=== PATIENT | male | born 1995 | race Caucasian/White ===

== ENCOUNTER 2024-05-25 13:16 | Outpatient (AMB) | payer OTHER, SELFPAY ==
--- NOTE | 2024-05-25 13:25 | MHC.PC.OV ---
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 Transferring care from Dr Banks ([facility]). Medical records have been requested and have not received. Barge Worker Required: No Airport Attendant: Not Required per policy Accompanied by: Self / Same As Patient Allergies No Known Allergies [No Known Allergies*] Allergy (Verified 05/25/24 13:45) Medication List - Last Reconciled 05/25/24 by Elizabeth Ulloa PA-C lamotrigine 150 mg PO BID trazodone 100 mg PO BEDTIME PRN Tobacco use date assessed: 05/25/24 Dental Screening Dental Screen Date: 05/25/24 Did you have a dental visit in the last 12 months?: No Did you have a dental problem in the last 6 months where you did not have access to dental care?: No Was dental information given to patient?: No HPI establish care HPI Details 28-year-old male coming to the office for the 1st time. Presenting with an initial visit for general evaluation and health maintenance. He has a history of a seizure disorder and has been on lamotrigine with satisfactory seizure control, as he has not had a seizure in five years. Insomnia is an ongoing issue, for which he takes trazodone, noting occasional missed doses. The patient reports numerous head surgeries following a significant fall from a parking garage in 2011. The patient has a smoking history of one to two cigarettes a day and is interested in cessation but has not previously tried any methods. [facility] Medical History (Updated 05/25/24 @ 13:54 by Elizabeth Ulloa PA-C) History of prescribed enteral nutrition feeding Surgical History (Updated 05/25/24 @ 13:54 by Elizabeth Ulloa PA-C) History of surgery of head History of surgery on arm History of right knee surgery Family History Other Substance use disorder Social History Housing: House (Town house) Alcohol intake: current Alcohol intake frequency: holidays/special occasions only Patient Tobacco Use Status: Current everyday Tobacco user Tobacco use type: Cigarette Cigarette Packs Per Day: 0.25 Cigarettes Per Day: 2 e-Cigarette/Vaping Use: Never Used Second Hand Smoke Exposure: Yes service: No Current occupational status: unemployed and disabled Cognitive needs: No Hearing needs: Yes (Hearing aide) Vision needs: No Questionnaire PHQ-9 Over the last 2 weeks, how often have you been bothered by any of the following problems? 1. Little interest or pleasure in doing things: not at all 2. Feeling down, depressed, or hopeless: not at all 3. Trouble falling or staying asleep, or sleeping too much: not at all 4. Feeling tired or having little energy: not at all 5. Poor appetite or overeating: not at all 6. Feeling bad about yourself - or that you are a failure or have let yourself or your family down: not at all 7. Trouble concentrating on things, such as reading the newspaper or watching television: several days 8. Moving or speaking so slowly that other people could have noticed. Or the opposite - being so fidgety or restless that you have been moving around a lot more than usual: not at all 9. Thoughts that you would be better off or of hurting yourself in some way: not at all Total score: 1 Depression Screening Interpretation: Negative Depression Screening Done: Yes Source: Developed by Drs. Karan Cabrera, Sandra Tan, Geo Borges and colleagues, with an educational parveen from [employer]. Thrive Questionnaire Date Thrive assessed: 05/25/24 I am a: Patient What is your living situation today?: I have a steady place to live Within the past 12 months, did the food you bought not last and you didn't have the money to get more?: Never true Within the past 12 months, did you worry whether your food would run out before you got money to buy more?: Never true Do you have trouble paying for medicines?: No Do you have trouble getting transportation to medical appointments?: No Do you have trouble paying your heating and electricity bill?: No Do you have trouble taking care of your child, family member or friend?: No Do you have trouble with day-to-day activities such as bathing, preparing meals, shopping, managing finances, etc.?: No Are you currently unemployed and looking for a job?: No Are you interested in more education?: Yes Please select the resources that you would like help with: None Currently or been in a relationship where the following occur: No concerns reported THRIVE Score: 0 AUDIT C Alcohol Use Questionnaire (AUDIT-C) 1. How often do you have a drink containing alcohol?: Monthly or less 2. How many drinks containing alcohol do you have on a typical day when you are drinking?: 1 or 2 3. How often do you have six or more drinks on one occasion?: Never Total Score: 1 TRISTON-7 AMB Questionnaire TRISTON-7 Date TRISTON - 7 assessed: 05/25/24 Feeling nervous, anxious, or on edge: 0 = Not at all Not being able to stop or control worryin = Not at all Worrying too much about different things: 0 = Not at all Trouble relaxin = More than half the days Being so restless that it is hard to sit still: 2 = More than half the days Becoming easily annoyed or irritable: 1 = Several days Feeling afraid as if something awful might happen: 0 = Not at all Total TRISTON-7 score (0-4 normal; 5-9 mild; 10-14 moderate; 15-21 severe): 5 Source: Developed by Drs. Karan Cabrera, Sandra Tan, Geo Borges and colleagues, with an educational parveen from [employer]. TRISTON-7 Assessment Billing TRISTON-7 Assessment Tool: TRISTON-7 Assessment 48688 Review of Systems Const Denies body aches, Denies chills, Denies fever(s), Denies headache(s) and Denies poor appetite Eyes Reports no additional complaints ENT Denies dysphagia, Denies dizziness, Denies headache(s) and Denies odynophagia Card Denies chest pain, Denies syncope, Denies lightheadedness and Denies dyspnea Resp Denies cough and Denies dyspnea GI Denies abdominal pain, Denies constipation, Denies dysphagia, Denies diarrhea, Denies nausea, Denies odynophagia and Denies vomiting Reports no additional complaints Musc Details: right knee pain and stiffness occasional Reports no additional complaints and Denies abnormal gait Skin/Breast Reports system reviewed and no additional complaints, except as documented Neuro Denies abnormal gait, Denies dizziness, Denies syncope and Denies headache(s) Psych Reports no additional complaints Physical exam (Primary Care) Vital Signs: Last Vital Signs Temp 97.3 F 05/25/24 13:27 Pulse 86 05/25/24 13:27 BP 110/56 L 05/25/24 14:06 Pulse Ox 98 05/25/24 13:27 Oxygen Delivery Method Room Air 05/25/24 13:27 BMI result Body Mass Index 21.8 Tobacco/Smoking Status: Tobacco use Status Tobacco use date assessed 05/25/24 05/25/24 13:42 Patient Tobacco Use Status Current everyday Tobacco 05/25/24 13:42 Tobacco use type Cigarette 05/25/24 13:42 e-Cigarette/Vaping Use Never Used 05/25/24 13:42 Are you ready to quit: Yes Tobacco cessation counseling provided: Yes Items discussed: Nicotine replacement Relapse Prevention: discussed dietary, exercise and/or lifestyle changes CPT code: Less than 3 minutes PHQ-9: PHQ-9 Score PHQ-9: Total score 1 05/25/24 13:48 Depression Screening Interpretation: Negative Thrive Assessment: Date of Thrive Assessment Date Thrive assessed 05/25/24 05/25/24 13:42 Currently or been in a relationship where the following occur: No concerns reported Const General: cooperative, healthy appearing, comfortable and no acute distress Orientation/consciousness: patient oriented x3 HENMT Head: Yes normocephalic Ears: hearing grossly normal bilaterally General nose exam: Normal external nose present Eyes General: appearance normal, both eyes and all related structures Conjunctivae: conjunctivae normal Neck Neck: Yes full ROM and Yes no lymphadenopathy Resp Effort & Inspection: normal respiratory effort Auscultation: clear to auscultation bilaterally, no crackles, no rales, no rhonchi and no wheezes Cardio Rate: regular rate Rhythm: regular rhythm Skin General skin exam: no rashes or lesions noted Neuro General: patient oriented x3 Gait exam (Neuro): Normal gait present Extrem General: Yes normal to inspection, Yes full ROM and No edema Psych Affect: normal affect Attitude: cooperative Insight: Good insight present (Psych) Judgement: Good judgement present (Psych) Coding Level of Care Code New Pt Level 3 (69196) Diagnoses Seizure disorder G40.909 Tobacco use disorder F17.200 Insomnia G47.00 Blindness of left eye H54.40 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 (2) Tobacco use disorder: Code(s): F17.200 - Nicotine dependence, unspecified, uncomplicated Category: Medical Plan: Smoking cigarettes and the use of tobacco can be harmful. We discussed the importance of stopping and options to aid in smoking cessation. Patient has plan in place to stopped smoking on his own declines nicotine replacement therapy or medical management at this time. Agrees to reach out if anything changes. (3) Insomnia: Code(s): G47.00 - Insomnia, unspecified Category: Medical Plan: Continue to use trazodone as needed or on a daily basis. (4) Blindness of left eye: Code(s): H54.40 - Blindness, one eye, unspecified eye Category: Medical Plan: Patient having blindness in the left eye after injury in 2012 currently stable. (5) Decreased hearing of left ear: Code(s): H91.92 - Unspecified hearing loss, left ear Category: Medical Plan: Hearing is stable continue to monitor Plan Scheduled laboratory evaluations will include blood counts, renal, hepatic functions, and specific screenings such as STDs, per patient consent. A follow-up visit is set for three months to review test results and conduct an annual examination This note was constructed using voice recognition software. While every effort has been made to ensure accuracy and manager oracle, still areas may have been included sometimes these areas may affect the content or meeting of the given symptoms. Total time spent caring for the patient today was 30 minutes. This includes time spent before the visit reviewing the chart, time spent during the visit, and time spent after the visit and documentation. Patient was informed and verbally consented to the use of an ambient scribe for clinic note documentation during this visit. Orders: Orders Comprehensive Met. Panel Today Z00.00 - Encounter for general adult medical examination without abnormal findings Vitamin B12 and Folate Today Z00.00 - Encounter for general adult medical examination without abnormal findings Complete Blood Count Auto Diff Today Z00.00 - Encounter for general adult medical examination without abnormal findings TSH reflex Free T4 Today Z00.00 - Encounter for general adult medical examination without abnormal findings Vitamin D 25-OH Total Today Z00.00 - Encounter for general adult medical examination without abnormal findings
[2024-05-25 13:27] VITALS: BP 140/78; PULSE 86; TEMP 36.3; O2SAT 98; BMI 21.8
[2024-05-25 14:06] VITALS: BP 110/56
== END 2024-05-25 14:05 | disposition home or self-care (01) ==
LOC: HO.HMCH 13:17
DX: G40.909 Epilepsy, unspecified, not intractable, without status epilepticus (principal); F17.200 Nicotine dependence, unspecified, uncomplicated; G47.00 Insomnia, unspecified; H54.40 Blindness, one eye, unspecified eye; H91.92 Unspecified hearing loss, left ear

== ENCOUNTER → 2024-05-25 13:16 | Outpatient (BNVA) | payer OTHER, SELFPAY | DX: G40.909 Epilepsy, unspecified, not intractable, without status epilepticus (principal); F17.210 Nicotine dependence, cigarettes, uncomplicated; G47.00 Insomnia, unspecified; H54.40 Blindness, one eye, unspecified eye; H91.92 Unspecified hearing loss, left ear | CPT/HCPCS: 96127; 99202 ==

== ENCOUNTER 2024-09-18 09:29 | Outpatient (AMB) | payer OTHER, SELFPAY ==
--- NOTE | 2024-09-18 09:32 | MHC.PC.OV ---
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 Accompanied by: Self / Same As Patient Allergies No Known Allergies (No Known Allergies*) Allergy (Verified 09/18/24 09:45) Medication List - Last Reconciled 09/18/24 by Elizabeth Ulloa PA-C lamotrigine 150 mg PO BID trazodone 100 mg PO BEDTIME PRN Tobacco use date assessed: 09/18/24 Dental Screening Dental Screen Date: 05/25/24 Did you have a dental visit in the last 12 months?: No Did you have a dental problem in the last 6 months where you did not have access to dental care?: No Was dental information given to patient?: No HPI pe HPI Details 29-year-old male with past medical history of seizure disorder, tobacco use disorder, insomnia last seen 05/2024 coming in for annual exam. Presenting for an annual wellness examination. The patient has been seizure-free for three to four years, currently managed with lamotrigine and trazodone for sleep. Reports significant morning discharge from the right eye, without pain or redness, and has not had recent ophthalmologic evaluation. This has been a chronic issue and has been going on for the last several years. Describes dizziness upon standing after bending, possibly due to mild dehydration, as water intake is limited to three cups daily. Continues to smoke but is reducing intake gradually without pharmacological assistance. Eye doctor: Referral was placed today [facility] Medical History History of prescribed enteral nutrition feeding Surgical History History of surgery of head History of surgery on arm History of right knee surgery Family History Other Substance use disorder Social History Housing: House (Town house) Alcohol intake: current Alcohol intake frequency: holidays/special occasions only Patient Tobacco Use Status: Current everyday Tobacco user Tobacco use type: Cigarette Cigarette Packs Per Day: 0.25 Cigarettes Per Day: 2 e-Cigarette/Vaping Use: Never Used Second Hand Smoke Exposure: Yes service: No Current occupational status: unemployed and disabled Cognitive needs: No Hearing needs: Yes (Hearing aide) Vision needs: No Questionnaire PHQ-9 Over the last 2 weeks, how often have you been bothered by any of the following problems? 1. Little interest or pleasure in doing things: not at all 2. Feeling down, depressed, or hopeless: not at all 3. Trouble falling or staying asleep, or sleeping too much: not at all 4. Feeling tired or having little energy: not at all 5. Poor appetite or overeating: not at all 6. Feeling bad about yourself - or that you are a failure or have let yourself or your family down: not at all 7. Trouble concentrating on things, such as reading the newspaper or watching television: several days 8. Moving or speaking so slowly that other people could have noticed. Or the opposite - being so fidgety or restless that you have been moving around a lot more than usual: not at all 9. Thoughts that you would be better off or of hurting yourself in some way: not at all Total score: 1 Depression Screening Interpretation: Negative Depression Screening Done: Yes Source: Developed by Drs. Karan Cabrera, Sandra Tan, Geo Borges and colleagues, with an educational parveen from [employer]. Thrive Questionnaire Date Thrive assessed: 09/18/24 I am a: Patient What is your living situation today?: I have a steady place to live Within the past 12 months, did the food you bought not last and you didn't have the money to get more?: Never true Within the past 12 months, did you worry whether your food would run out before you got money to buy more?: Never true Do you have trouble paying for medicines?: No Do you have trouble getting transportation to medical appointments?: No Do you have trouble paying your heating and electricity bill?: No Do you have trouble taking care of your child, family member or friend?: No Do you have trouble with day-to-day activities such as bathing, preparing meals, shopping, managing finances, etc.?: No Are you currently unemployed and looking for a job?: No Are you interested in more education?: Yes Please select the resources that you would like help with: None Currently or been in a relationship where the following occur: No concerns reported THRIVE Score: 0 TRISTON-7 AMB Questionnaire TRISTON-7 Date TRISTON - 7 assessed: 09/18/24 Feeling nervous, anxious, or on edge: 0 = Not at all Not being able to stop or control worryin = Not at all Worrying too much about different things: 0 = Not at all Trouble relaxin = More than half the days Being so restless that it is hard to sit still: 2 = More than half the days Becoming easily annoyed or irritable: 1 = Several days Feeling afraid as if something awful might happen: 0 = Not at all Total TRISTON-7 score (0-4 normal; 5-9 mild; 10-14 moderate; 15-21 severe): 5 Source: Developed by Drs. Karan Cabrera, Sandra Tan, Geo Borges and colleagues, with an educational parveen from [employer]. TRISTON-7 Assessment Billing TRISTON-7 Assessment Tool: TRISTON-7 Assessment 84811 Review of Systems Const Denies body aches, Denies fatigue, Denies fever(s), Denies frequent falls, Denies headache(s) and Denies weakness Eyes Details: blind in the left eye Reports no additional complaints ENT Denies dysphagia, Denies dizziness, Denies headache(s), Denies nasal congestion and Denies odynophagia Card Denies chest pain, Denies syncope, Denies irregular heart rhythm, Denies leg edema, Denies lightheadedness and Denies dyspnea Resp Denies cough and Denies dyspnea GI Denies abdominal pain, Denies constipation, Denies dysphagia, Denies dyspepsia, Denies diarrhea, Denies nausea, Denies odynophagia and Denies vomiting Denies dysuria, Denies urinary hesitancy and Denies urinary urgency Musc Denies back pain and Denies myalgias Skin/Breast Reports system reviewed and no additional complaints, except as documented Neuro Denies dizziness, Denies syncope, Denies frequent falls, Denies headache(s) and Denies weakness Psych Reports no additional complaints Endo Denies fatigue Physical exam (Primary Care) Vital Signs: Last Vital Signs Temp 98.7 F 09/18/24 09:33 Pulse 70 09/18/24 09:33 BP 118/60 09/18/24 09:33 Pulse Ox 98 09/18/24 09:33 Oxygen Delivery Method Room Air 09/18/24 09:33 BMI result Body Mass Index 21.1 Tobacco/Smoking Status: Tobacco use Status Tobacco use date assessed 09/18/24 09/18/24 09:38 Patient Tobacco Use Status Current everyday Tobacco 09/18/24 09:38 Tobacco use type Cigarette 09/18/24 09:38 e-Cigarette/Vaping Use Never Used 09/18/24 09:38 PHQ-9: PHQ-9 Score PHQ-9: Total score 1 09/18/24 10:12 Depression Screening Interpretation: Negative Thrive Assessment: Date of Thrive Assessment Date Thrive assessed 09/18/24 09/18/24 09:38 Currently or been in a relationship where the following occur: No concerns reported Const General: cooperative, healthy appearing, comfortable and no acute distress Orientation/consciousness: patient oriented x3 HENMT Head: Yes normocephalic Ears: hearing grossly normal bilaterally, external ears normal, TM's normal bilaterally and EAC's normal General nose exam: Normal external nose present Face and sinus: Yes normal facial exam and Yes sinuses nontender Mouth: Normal oral and palatal mucosa present and tongue normal Throat: Yes posterior oropharynx normal Eyes Other: Mild clear drainage from the right eye. No function of the left eye Conjunctivae: conjunctivae normal Pupils: Equal, round and reactive pupils present (right ) EOM: EOMs intact bilaterally (right eye only ) and No Nystagmus present Neck Neck: Yes normal visual inspection, Yes full ROM and Yes no lymphadenopathy Chest Chest palpation & inspection: normal inspection of the chest Resp Effort & Inspection: normal respiratory effort Auscultation: clear to auscultation bilaterally, no crackles, no rales, no rhonchi, no wheezes and breath sounds present Cardio Rate: regular rate Rhythm: regular rhythm Peripheral pulses: radial pulses present and dorsalis pedis present GI Inspection: Yes normal to inspection and No Abdominal wall edema Palpation (GI): Soft to palpation, not firm and nontender Auscultation: normal bowel sounds Rectal Exam - Male: Yes deferred General: Yes no CVA tenderness Back/Spine/Pelvis Back: no CVA tenderness Skin General skin exam: no rashes or lesions noted Neuro General: patient oriented x3 Cranial nerves: Yes Equal, round and reactive pupils present (right ), Yes Midline tongue present, Yes Ability to bilaterally elevate shoulders present and No Nystagmus present Gait exam (Neuro): Normal gait present Extrem General: Yes normal to inspection, Yes full ROM, No no pedal edema and No edema Psych Speech and movement: Normal speech and movement present Affect: normal affect Insight: Good insight present (Psych) Judgement: Good judgement present (Psych) Coding Level of Care Code Est Pt Prev Care 18-39y(23208) Diagnoses Annual physical exam Z00.00 Seizure disorder G40.909 Tobacco use disorder F17.200 Primary insomnia F51.01 Insomnia type: primary Blindness of left eye H54.40 Decreased hearing of left ear H91.92 Discharge of right eye H57.89 Additional Codes TRISTON-7 Assessment Billing - TRISTON-7 Assessment Tool: TRISTON-7 Assessment 98053 ([id number]) Assessment & Plan Assessment & Plan (1) Annual physical exam: Code(s): Z00.00 - Encounter for general adult medical examination without abnormal findings Category: Medical Plan: Patient is up-to-date on all recommended routine screenings and vaccinations for his age. I did remind the patient about blood work and was provided with printed lab orders today. He will follow up yearly or sooner as needed or pending blood work evaluation. (2) Seizure disorder: Code(s): G40.909 - Epilepsy, unspecified, not intractable, without status epilepticus Category: Medical Plan: The patient continues with lamotrigine for his seizure disorder, with no recent episodes reported. (3) Tobacco use disorder: Code(s): F17.200 - Nicotine dependence, unspecified, uncomplicated Category: Medical Plan: Smoking cigarettes and the use of tobacco can be harmful. We discussed the importance of stopping and options to aid in smoking cessation. Patient has plan in place to stopped smoking on his own declines nicotine replacement therapy or medical management at this time. Agrees to reach out if anything changes. (4) Insomnia: Code(s): G47.00 - Insomnia, unspecified Category: Medical Qualifiers: Insomnia type: primary Qualified Code(s): F51.01 - Primary insomnia Plan: Continue to use trazodone as needed or on a daily basis. 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 (6) Decreased hearing of left ear: Code(s): H91.92 - Unspecified hearing loss, left ear Category: Medical Plan: Hearing is stable continue to monitor (7) Discharge of right eye: Code(s): H57.89 - Other specified disorders of eye and adnexa Category: Medical Plan: He does have some right eye discharge that is present on exam without erythema, irritation or pain. He states this is chronic has been ongoing for several years plan for annual eye exams. Reviewed red flag symptoms and when to present for re-evaluation. Plan Blood work is planned to explore the etiology of chills and dizziness, considering dehydration and electrolyte disturbances. The patient is encouraged to increase hydration to five to six cups of water daily. An ophthalmology referral is made for the evaluation of right eye discharge. Smoking cessation efforts are supported, with a gradual reduction strategy. Follow-up with an scheduling specialist is recommended annually, and a yearly wellness check is advised unless earlier intervention is needed. This note was constructed using voice recognition software. While every effort has been made to ensure accuracy and commissioned defence force officer, still areas may have been included sometimes these areas may affect the content or meeting of the given symptoms. Total time spent caring for the patient today was 30 minutes. This includes time spent before the visit reviewing the chart, time spent during the visit, and time spent after the visit and documentation. Patient was informed and verbally consented to the use of an ambient scribe for clinic note documentation during this visit. Orders: Referrals Optometry Referral H54.40 - Blindness, one eye, unspecified eye, Z00.00 - Encounter for general adult medical examination without abnormal findings
[2024-09-18 09:33] VITALS: BP 118/60; PULSE 70; TEMP 37.1; O2SAT 98; BMI 21.1
== END 2024-09-18 10:12 | disposition home or self-care (01) ==
LOC: HO.HMCH 09:30
DX: Z00.00 Encounter for general adult medical examination without abnormal findings (principal); G40.909 Epilepsy, unspecified, not intractable, without status epilepticus; F17.200 Nicotine dependence, unspecified, uncomplicated; F51.01 Primary insomnia; H54.40 Blindness, one eye, unspecified eye; H91.92 Unspecified hearing loss, left ear; H57.89 Other specified disorders of eye and adnexa

== ENCOUNTER → 2024-09-18 09:29 | Outpatient (BNVA) | payer OTHER, SELFPAY | DX: Z00.00 Encounter for general adult medical examination without abnormal findings (principal); G40.909 Epilepsy, unspecified, not intractable, without status epilepticus; F51.01 Primary insomnia; H54.40 Blindness, one eye, unspecified eye; H91.92 Unspecified hearing loss, left ear; H57.89 Other specified disorders of eye and adnexa; F17.210 Nicotine dependence, cigarettes, uncomplicated; Z13.31 Encounter for screening for depression; Z13.39 Encounter for screening examination for other mental health and behavioral disorders | CPT/HCPCS: 96127; 99395 ==

== ENCOUNTER 2024-12-06 18:31 | Emergency (ER) | payer OTHER, SELFPAY ==
--- NOTE | ~2024-12-06 | XR_ITS ---
CLINICAL HISTORY: pain, injury 2 view right femur Comparison: None provided Findings: Remote right femoral fractures status post retrograde intramedullary nail fixation. No abnormal lucency surrounding the hardware. Moderate knee osteoarthritic changes. No acute fracture. IMPRESSION: 1. Remote right femur fractures with large associated calluses. No acute fracture identified. This document has been electronically signed by: Alonso Bustos MD on 12/06/2024 19:32:22
[2024-12-06 18:34] VITALS: BP 142/77; PULSE 67; RESP 16; TEMP 36.7; O2SAT 97; BMI 21.9
--- NOTE | 2024-12-06 18:45 | ED_ITS ---
HPI - General Adult General Chief complaint: General Medical Stated complaint: collar bone quinn was at [facility] today Time Seen by Provider: 12/06/24 18:47 Source: patient and family (patient's sisters) Mode of arrival: ambulatory Limitations: no limitations History of Present Illness ED Provider: Mela Velez PA-C HPI narrative: Patient is a 29 year old assigned male at with a history of TBI and right femur fracture with hardware presenting to the emergency department today with right femur pain and a right clavicle fracture. Patient states that he was skateboarding when he fell and landed on his right shoulder / right leg, causing pain. Patient states that he did hit his head but did not lose consciousness and remembers the entire incident. Patient states that he was seen at [facility] who told him his right clavicle was broken but they did not image his right leg and did not give him a sling or any follow up. Patient denies other complaints at this time. Related Data Home Medications ?Medication ?Instructions ?Recorded ?Confirmed lamotrigine 150 mg tablet 150 mg PO BID 05/25/2409/18 trazodone 100 mg tablet 100 mg PO BEDTIME PRN insomn ia 05/25/24 09/18/24 Allergies Allergy/AdvReac Type Severity Reaction Status Date / Time No Known Allergies (No Known Allergy Verified 12/06/24 18:39 Allergies*) Review of Systems Constitutional: Constitutional: Reports as per HPI Eyes: Eyes: Reports as per HPI ENT: Reports as per HPI Cardiovascular: Cardiovascular: Reports as per HPI Respiratory: Respiratory: Reports as per HPI Gastrointestinal: Gastrointestinal: Reports as per HPI Genitourinary: Genitourinary: Reports as per HPI Musculoskeletal: Musculoskeletal: Reports as per HPI Integumentary/Breasts: Skin/Breast: Reports as per HPI Neurologic: Reports as per HPI Psychiatric: Psychiatric: Reports as per HPI Endocrine: Endocrine: Reports as per HPI Hematologic/Lymphatic: Hematologic/Lymphatic: Reports as per HPI Allergic/Immunologic: Allergic/Immunologic: Reports as per HPI [facility] Past Medical History Attestation statement: The following information was validated with the patient. Source: old records reviewed and nursing notes reviewed Medical History History of prescribed enteral nutrition feeding Surgical History History of surgery of head History of surgery on arm History of right knee surgery Family History Family History Other Substance use disorder Social History Social History Housing: House (Town house) Alcohol intake: current Alcohol intake frequency: holidays/special occasions only Patient Tobacco Use Status: Current everyday Tobacco user Tobacco use type: Cigarette Cigarette Packs Per Day: 0.25 Cigarettes Per Day: 2 e-Cigarette/Vaping Use: Never Used Second Hand Smoke Exposure: Yes Advance Directives: No Advance Directives Information Provided: No service: No Current occupational status: unemployed and disabled Cognitive needs: No Hearing needs: Yes (Hearing aide) Vision needs: No Physical Exam ED Vital Signs: Vital Signs - 24 hr 12/06/24 18:34 12/06/24 20:05 Temperature 98.1 F 98.1 F Pulse Rate 67 76 Respiratory Rate 16 16 Blood Pressure 142/77 H 143/84 H Pulse Oximetry 97 98 Oxygen Delivery Method Room Air Room Air BMI result Body Mass Index 21.9 Const General: cooperative, no acute distress, alert and awake Nutritional Appearance: well nourished Orientation/consciousness: patient oriented x3 HENMT Head: Yes normal to inspection and Yes atraumatic Ears: hearing grossly normal bilaterally and external ears normal General nose exam: Normal external nose present, no nasal discharge noted and no epistaxis Face and sinus: Yes normal facial exam, No abrasion and No laceration Mouth: Normal oral and palatal mucosa present, no drooling and no muffled voice Eyes Other: left eye blindness - chronic for the patient. Neck Neck: Yes normal visual inspection and Yes full ROM Resp Effort & Inspection: normal respiratory effort and able to speak in complete sentences Neuro General: patient oriented x3, moves all extremities and CN's II-XI intact bilaterally Cognition (Neuro): normal cognition Extrem Other: limited ROM of the right clavicle secondary to pain Surgical scar to right femur - well healed, old. General: Yes normal to inspection and Yes capillary refill normal Psych Appearance: grossly normal Mental Status: mental status grossly normal Affect: normal affect Attitude: cooperative Thought process: Normal thought process present Thought content: Normal thought content present Insight: Good insight present (Psych) Course Course Course Narrative: RmE: 29 year male presents to ED for known right clavicle fracture diagnosed today at baseline after falling off skateboard. Patient also states right femur pain. Patient fell on his head had no helmet. Patient was sitting for long time for sling so he left and came to the ED at [place] Procedures Orthopedic Splinting/Casting R clavicle: Side: right Upper Extremity Injury Location: clavicle Upper Extremity Immobilizer: sling/shoulder immobilizer Medical Decision Making Medical Decision Making [facility] Narrative: Patient is a 29 year old assigned male at with a history of TBI and right femur fracture with hardware presenting to the emergency department today with right femur pain and a right clavicle fracture. Patient's physical exam was as noted in the physical exam portion of this note. Patient's right femur x-ray showed no acute process but did demonstrate the patient's old fractures / hardware. I explained my physical exam findings as well as all test results to the patient and the patient's sisters. I answered all questions asked by the patient and the patient's sisters. Patient's right upper extremity was placed in a sling, without incident. Patient's PMS was intact prior to and after sling placement. I stressed the importance of the patient taking his medication as directed (either prescribed or as the over the counter packaging recommends). I stressed the importance of the patient following up with his primary care provider and the orthopedic team. I stressed the importance of the patient returning to the emergency department immediately if his symptoms were to worsen or if he were to develop any dizziness, shortness of breath, difficulty breathing, chest pain, blurry vision, loss of vision, nausea, vomiting, abdominal pain, fever, chills, back pain, or any other complaints. Patient verbalized agreement and understanding with this treatment plan and discharge. Differential Diagnosis Differential Diagnoses: The differential diagnosis associated with the presentation includes Collar bone fracture Fall Femur contsuion Admission/Observation Consideration of admission/observation: Escalation of care including admission/observation considered Patient would have been admitted to the hospital had his work up had any findings where hospital admission was appropriate and his clinical presentation warranted hospital admission. Independent Interpretation I performed an independent interpretation of an: Plain X-Ray Interpretation: My interpretation is in agreement with the radiologist's impression of this imaging study. Reason for Exam: pain, injury CLINICAL HISTORY: pain, injury 2 view right femur Comparison: None provided Findings: Remote right femoral fractures status post retrograde intramedullary nail fixation. No abnormal lucency surrounding the hardware. Moderate knee osteoarthritic changes. No acute fracture. IMPRESSION: 1. Remote right femur fractures with large associated calluses. No acute fracture identified. This document has been electronically signed by: Alonso Bustos MD on 12/06/2024 19:32:22 Dictated By: Alonso Bustos MD Signed By: Electronically signed by Alonso Bustos MD 12/06/241932 Radiology Impression Discussion of test interpretation with radiology: I have reviewed the radiologist's reading. Independent Historian Clinical information obtained from an independent historian. History obtained from or confirmed by: Other (patient's sisters provided additional history and confirmed the history provided by the patient. ) External Record Review External record reviewed: Outside ED record (Reviewed [facility] note from 12/06/2024 and confirmed right distal 3rd clavicle fracture) Discharge Plan Discharge Clinical Impression: Collar bone fracture, Contusion Patient Disposition: Home, Self-Care Instructions: Clavicle Fracture (DC) Additional Instructions: Your right femur x-ray showed your old injuries but nothing NEW. Your right clavicle is broken and you were put in a sling. Every 1 hour for 10 minutes make sure to remove the sling and practice RIGHT ELBOW range of motion to avoid freezing the joint. IF you are prescribed home medications and/or you are taking over the counter medications at home - it is very important you continue to do so as prescribed / directed unless told otherwise. Follow up with a primary care provider and the orthopedic team. Return to the emergency department immediately if your symptoms worsen or if you develop any numbness, tingling, dizziness, shortness of breath, difficulty breathing, chest pain, blurry vision, loss of vision, nausea, vomiting, abdominal pain, fever, chills, back pain, or any other complaints. Please see the information below about our Patient Portal. If you are not yet enrolled in the [facility] Patient Portal, you will receive an enrollment email invitation following your visit to any [facility] setting. You may also self-enroll in the Patient Portal by visiting our website: [email or web address] The following information is required to access the Patient Portal: - Your [facility] Medical Record Number - Your personal home email address (must match what is in your electronic medical record, Registration staff can assist with this) - Name - Date of Capabilities of the Patient Portal: - Message some providers - View upcoming appointments - Access your health summary, medical history, and visit history - View current conditions and allergies - View procedure and lab results - View your medications, including guidelines, side effects, and precautions - Complete pre-appointment questionnaires requested by your provider - Ready summary reports of your office visits and procedures To access the Patient Portal Mobile Khanh, follow these directions: - Search [facility] in the Khanh Store or PopJax Store - Download the Khanh - Search for [facility] - Enter your login/password Prescriptions: No Action lamotrigine 150 mg tablet 150 mg PO BID trazodone 100 mg tablet 100 mg PO BEDTIME PRN (Reason: insomnia) Referrals: [facility] Orthopedic Surgeons [Provider Group] Referral Note: Call to establish and follow up with the orthopedic team. Elizabeth Ulloa PA-C [Primary Care Provider, Internal Medicine] Interventions: ED Discharge Assessment Last Done: 12/06/24 20:05 Discharge Date/Time: 12/06/24 20:10 Print Language: Kazakh
[2024-12-06 20:05] VITALS: BP 143/84; PULSE 76; RESP 16; TEMP 36.7; O2SAT 98
== END 2024-12-06 20:10 | disposition home or self-care (01) ==
PROVIDERS: Emergency Provider Emergency Medicine
DX: S42.001A Fracture of unspecified part of right clavicle, initial encounter for closed fracture (principal); S70.11XA Contusion of right thigh, initial encounter; W18.30XA Fall on same level, unspecified, initial encounter; Y93.51 Activity, roller skating (inline) and skateboarding; Y92.9 Unspecified place or not applicable; M79.604 Pain in right leg; F17.200 Nicotine dependence, unspecified, uncomplicated; Z71.6 Tobacco abuse counseling; Z87.820 Personal history of traumatic brain injury
CPT/HCPCS: 73552; 99283

== ENCOUNTER → 2024-12-06 18:57 | Outpatient (BNV) | payer OTHER, SELFPAY | PROVIDERS: Emergency Provider Emergency Medicine; Visit Provider Radiology Diagnostic Radiology | DX: S72.91XA Unspecified fracture of right femur, initial encounter for closed fracture (principal) | CPT/HCPCS: 73552 ==

== ENCOUNTER 2024-12-28 08:52 | Outpatient (AMB) | payer OTHER, SELFPAY ==
--- NOTE | 2024-12-28 09:18 | MHC.OFFVIS ---
Vital Signs 12/28/24 09:21 Height 5 ft 7 in Weight 140 lb BMI 21.9 Handedness Ambidextrous Intake Visit Reasons: FC - Right Clavicle Fracture, DOI? Intake Note: Hubert is a 29 year old right hand dominant male who presents today for a evaluation of his right clavicle fracture, DOI 12/08/24. He was seen at the ED on 12/06/24 and was placed in a sling. Patient states he was skateboarding when he fell and landed on his right shoulder and his right leg. He started to notice instant pain on the lateral aspect of the shoulder and clavicle. Patient tried to take Tylenol for a bit but minimal relief. Allergies No Known Allergies (No Known Allergies*) Allergy (Verified 12/28/24 09:20) HPI HPI FC - Right Clavicle Fracture, DOI?: Details: Mr. Dick is a 29 nryp-gzq-yekgg hand dominant male with a past medical history signifanct for a TBI, left eye blindness and left ear deafness, who presents to the office today for evaluation of a right clavicle fracture that occurred on 12/08/24. He was seen at the ED on 12/06/24 and was placed in a sling. Patient states he was skateboarding when he fell and landed on his right shoulder and his right leg. He started to notice instant pain on the lateral aspect of the shoulder and clavicle. Patient tried to take Tylenol for a bit but minimal relief. [facility] Medical History History of prescribed enteral nutrition feeding Surgical History History of surgery of head History of surgery on arm History of right knee surgery Family History Other Substance use disorder Social History (Updated 12/28/24 @ 09:21 by Rommel Chandler) Housing: House (Town house) Alcohol intake: current Alcohol intake frequency: holidays/special occasions only Patient Tobacco Use Status: Former Tobacco user Tobacco use type: Cigarette Cigarette Packs Per Day: 0.25 Cigarettes Per Day: 2 e-Cigarette/Vaping Use: Never Used Second Hand Smoke Exposure: Yes service: No Current occupational status: unemployed and disabled Cognitive needs: No Hearing needs: Yes (Hearing aide) Vision needs: No Review of Systems Const All systems reviewed & are unremarkable except as noted in HPI and below Physical Exam Vital Signs: BMI result Body Mass Index 21.9 Const General: cooperative, healthy appearing and no acute distress Resp Effort & Inspection: normal respiratory effort and able to speak in complete sentences Extrem Other: Right upper extremity 60 degrees of forward flexion and abduction. No evidence of skin tenting. No evidence of open fracture. NVI. Psych Appearance: grossly normal Mental Status: mental status grossly normal Attitude: cooperative Assessment & Plan Assessment & Plan (1) Closed right clavicular fracture: Code(s): S42.001A - Fracture of unspecified part of right clavicle, initial encounter for closed fracture Category: Medical Plan Mr. Dick is a 29 kmnw-kht-lljmu hand dominant male with a past medical history signifanct for a TBI, left eye blindness and left ear deafness, who presents to the office today for evaluation of a right clavicle fracture that occurred on 12/08/24. He was seen at the ED on 12/06/24 and was placed in a sling. Patient states he was skateboarding when he fell and landed on his right shoulder and his right leg. He started to notice instant pain on the lateral aspect of the shoulder and clavicle. Patient tried to take Tylenol for a bit but minimal relief. While in the office today, I discussed the x-ray findings of a mildly displaced distal right clavicle fracture with the patient and treatment options available. Recommendation is for conservative treatment options at this time as the fracture is mildly displaced. The patient may use a sling for comfort. I have placed an order for physical therapy to begin working on gentle range of motion. He should avoid overhead motions at this time. He will follow up in 4 weeks with repeat x-rays, sooner if needed. X-rays of the right clavicle which were obtained while in the office today and were reviewed by me, Rosana Houston PA-C, revealed distal clavicle fracture with mild displacement. Orders: Orders XR clavicle RT Today M89.8X1 - Other specified disorders of bone, shoulder Coding Level of Care Code New Pt Level 3 (60292) Diagnoses Closed right clavicular fracture S42.001A
[2024-12-28 09:21] VITALS: BMI 21.9
== END 2024-12-28 09:45 | disposition home or self-care (01) ==
LOC: HO.HOS 08:52
PROVIDERS: Visit Provider Physician Assistant
DX: S42.001A Fracture of unspecified part of right clavicle, initial encounter for closed fracture (principal)
CPT/HCPCS: 99203

== ENCOUNTER 2024-12-28 08:53 | Outpatient (REF) | payer OTHER, SELFPAY ==
--- NOTE | ~2024-12-28 | XR_ITS ---
EXAMINATION: XR CLAVICLE, RIGHT CLINICAL INFORMATION: M89.8X1 - Other specified disorders of bone, shoulder COMPARISON: None available. TECHNIQUE: Two views of the right clavicle. FINDINGS: Fracture of the distal third of the clavicle, with inferior displacement of the distal bone by approximately 7 mm. Mild callus formation. The acromioclavicular interval and alignment is maintained. Sternoclavicular articulation is maintained. Humeral head articular to the glenoid. No acute lung findings. XR/XR clavicle RT IMPRESSION: Displaced fracture of the distal third of the right clavicle. Mild callus formation. Electronically signed by: Maurizio Salinas MD 12/28/2024 01:05 PM [facility]
== END 2024-12-28 08:54 | disposition home or self-care (01) ==
LOC: HO.HOSX 08:53
PROVIDERS: Visit Provider Physician Assistant
DX: M89.8X1 Other specified disorders of bone, shoulder (principal); S42.001A Fracture of unspecified part of right clavicle, initial encounter for closed fracture; V00.131A Fall from skateboard, initial encounter; Y93.51 Activity, roller skating (inline) and skateboarding
CPT/HCPCS: 73000; 99202